=== PATIENT | female | born 1950 | race Caucasian/White ===

== ENCOUNTER → 2017-04-29 | Outpatient (CLI) | payer MEDICARE, OTHER ==
--- NOTE | 2017-04-30 10:00 | MAM ---
History: Well woman exam. Date of exam: 04/29/2017 Services provided: Bilateral full field digital screening mammography. CAD, the images were reviewed with R2 computer aided detection. FINDINGS: Glandular tissue is near completely fatty involuted. Comparison with 2012 exam. No dominant mass, architectural distortion or clustered microcalcification. IMPRESSION: Benign exam Recommendation: Routine annual mammography BIRAD CATEGORY: 2 BENIGN Electronically signed by: Amanda Alcala MD 04/30/2017 9:58 AM CDT Workstation: [id number]
== END | disposition home or self-care (01) ==
LOC: MAMMO 09:00
PROVIDERS: ATTEND Family Medicine
DX: Z12.31 Encounter for screening mammogram for malignant neoplasm of breast (principal)

== ENCOUNTER → 2018-04-30 | Outpatient (CLI) | payer MEDICARE, OTHER ==
--- NOTE | 2018-05-02 14:39 | MAM ---
EXAM DESCRIPTION: 3D Screening BILATERAL : Digital Mammography. CLINICAL HISTORY: 67 years Female SCREENING . No complaints. No family history breast cancer. Childbirth. Postmenopausal. HRT 5 or more years ago.. COMPARISON: 2-D digital screening bilateral study 11/29/2016.. Report from prior examination also reviewed. TECHNIQUE: Bilateral CC and MLO projection full-field images, 3-D tomosynthesis digital mammographic technique. CAD not utilized. FINDINGS: The breast parenchymal density pattern is: Almost entirely fatty. No skin thickening or nipple retraction. Bilateral solitary microcalcifications. No new focal, stellate mass or density, focal asymmetry , and no suspicious microcalcifications bilaterally. Stable mammograms compared to prior study, taking into account differences in mammographic technique. IMPRESSION: BI-RADS CATEGORY: 2 - BENIGN FINDINGS. FOLLOW UP: Routine digital bilateral screening, one year interval from April 2018. Written communication explaining the IMPRESSION and follow-up, will be mailed to the patient and referring health care provider. According to the [employer], yearly mammograms are recommended starting at age 40 and continuing as long as a woman is in good health. Any breast change noted on a breast self-exam should be reported promptly to the patient's healthcare provider. Breast MRI is recommended for women with an approximately 20-25% or greater lifetime risk of breast cancer, including women with a strong family history of breast or ovarian cancer and women who have been treated for Hodgkin's disease. A negative mammographic report should not delay tissue diagnosis in patients with significant clinical history or physical findings. Extremely dense breast tissue limits the sensitivity of digital mammography. Electronically signed by: Sami White MD 05/02/2018 2:38 PM CDT
== END ==
LOC: MAMMO 10:30
PROVIDERS: ATTEND Family Medicine
DX: Z12.31 Encounter for screening mammogram for malignant neoplasm of breast (principal)

== ENCOUNTER → 2019-02-10 | Outpatient (CLI) | payer MEDICARE, OTHER ==
--- NOTE | 2019-02-10 15:03 | CT ---
EXAM DESCRIPTION: Chest w/Contrast CLINICAL HISTORY: PULMONARY NODULE COMPARISON: None. TECHNIQUE: Postcontrast CT images of the chest are obtained using standard imaging protocol. This exam was performed according to our departmental dose-optimization program, which includes automated exposure control, adjustment of the mA and/or kV according to patient size and/or use of iterative reconstruction technique . FINDINGS: The heart shows mild coronary artery calcifications. No pleural or pericardial effusion. Mild calcified plaque of the thoracic aorta and great vessels is seen. No pathologically enlarged mediastinal, hilar, or axillary lymphadenopathy seen. Calcified lymph nodes in the left hilar region are seen. Calcified pulmonary nodule in the left mid chest measures 12 mm. Visualized portion of the upper abdomen shows heterogeneous decreased attenuation of the liver suggesting diffuse fatty infiltration. 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 Lungs are normally aerated. No acute infiltrate or consolidation is seen. No worrisome noncalcified pulmonary nodules are seen. Osseous structures show no aggressive bony lesions. IMPRESSION: Calcified pulmonary nodule in the lingula of the left upper lobe is seen with calcified lymph nodes in the left hilar region consistent with old granulomatous disease. Electronically signed by: Jamaal Cool MD 02/10/2019 3:00 PM CDT
--- NOTE | 2019-02-10 17:05 | US ---
EXAM DESCRIPTION: Soft Tissue,Head/Neck: ULTRASOUND. CLINICAL HISTORY: 68 years Female LOCALIZED SWELLING,MASS AND LUMP, NECK COMPARISON: None Available. TECHNIQUE: Transcutaneous scanning: Rico-scale and Doppler modes. Technologist describes palpable mass in the right submandibular region. FINDINGS: Right submandibular mass is heterogeneous and hypoechoic with increased vascularity. Measures approximately 2.1 x 1.1 x 1.9 cm. Increased vascularity. Multiple lobulations of the capsule. The mass measures approximately 2 x 1.8 x 1.0 cm. The normal gland is less hypoechoic and more homogeneous with smooth capsule. Overall size of the gland is 3.1 x 2.5 x 1.0 cm. Nonvascular linear hypoechoic structure may represent a duct. No large calcifications. No fluid collections within the gland are abutting the gland. The left submandibular gland appearance is identical to the normal segment of the right submandibular gland. Its dimensions are 2.5 x 0.8 cm. Not evaluated by Doppler. IMPRESSION: Abnormal tissue within the right submandibular gland which is more hypoechoic and heterogeneous than the normal tissue and also more vascular. Enlargement of the gland but no cysts or fluid collections. Differential includes sialoadenitis, benign mixed tumor, or carcinoma. Consider ENT consult and/or CT scan of the neck soft tissues with and without IV contrast. Electronically signed by: Sami White MD 02/10/2019 5:02 PM CDT
== END ==
LOC: CT 09:44
PROVIDERS: ATTEND Family Medicine
DX: R91.1 Solitary pulmonary nodule (principal); K11.9 Disease of salivary gland, unspecified

== ENCOUNTER → 2019-02-13 | Outpatient (CLI) | payer MEDICARE, OTHER ==
--- NOTE | 2019-02-14 12:51 | CT ---
EXAM DESCRIPTION: Soft Tissue Neck w/wo Contrast: Computed Tomography CLINICAL HISTORY: 68 years Female, LOCALIZED SWELLING, MASS AND LUMP NECK. Right submandibular gland mass. COMPARISON: Ultrasound of the neck soft tissues 02/10/2019. Ultrasound of the chest with contrast 02/10/2019. TECHNIQUE: Spiral, axial 2.5 x 2.5 mm scans through the neck soft tissues before and after infusion of IV contrast. Sagittal and coronal 2.0 reconstructions. No adverse reactions. Total Exam DLP: 480.04 mGy-cm. This exam was performed according to our departmental CT dose-optimization program which includes automated exposure control, adjustment of the mA and/or kV according to patient size and/or use of iterative reconstruction technique; to reduce radiation dose to as low as reasonably achievable (ALARA). FINDINGS: Increased enhancement is noted in the posterior and inferior aspect of the right submandibular gland this tissue measures approximately 2.1 cm AP, 1.7 cm craniocaudal, and 1.5 cm transverse. Smooth margins with no abnormal fatty enhancement or stranding in the surrounding adipose tissues. The remainder of the gland demonstrates the same amount of enhancement as the left submandibular gland which is slightly larger than the right submandibular gland. No abnormal enhancement in the left submandibular gland normal enhancement in density of the surrounding subcutaneous adipose tissues. No radiodense calcifications within either submandibular gland. No adenopathy within the submandibular space, none in the carotid spaces, paracervical spaces, or parapharyngeal spaces. No effacement or displacement of the airway and no asymmetric thickening or enhancement around the airway. Partially nonenhancing nodule in the posterior right lobe of the thyroid gland measuring 1.4 x 1.1 cm.. No calcifications within this nodule which has circumscribed margins and no adjacent fatty stranding. No adenopathy in the parathyroid soft tissues abutting the vascular structures. Included lungs are unremarkable. 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 Spondylosis at C6-7 and T1-2 with narrowing of the canals at both levels and foramina. IMPRESSION: 1. 2.1 cm mass, enhancing more than the remainder of the gland, in the posterior and inferior right submandibular gland circumscribed, not infiltrative, no surrounding fatty edema or stranding and no calcifications. Differential includes benign mixed tumor, inflammatory/autoimmune lesion, or carcinoma. No surrounding adenopathy. Consider ENT consult and tissue diagnosis. 2. 1.4 cm nonenhancing nodule in the posterior right thyroid gland. Consider follow-up thyroid ultrasound. See [facility] Best Practice guidelines below*. *Further evaluation by thyroid US recommended for: -Solitary ITN with high risk imaging features (locally invasive nodule or suspicious lymph nodes) -Solitary ITN of any size in pediatric pts. <= 18 years of age -Solitary ITN >= 1 cm in axial plane in pts. between 18 and 35 years of age -Solitary ITN >= 1.5 cm in axial plane in pts >= 35 years of age -Heterogeneous enlarged thyroid gland -ITN avid on FDG-PET or other nuclear medicine (MIBI and octreotide) scans. FNA biopsy is also recommended for PET avid nodules. No US or f/u recommended for ITNs without high risk features in pts. with limited life expectancy or significant co-morbidities, unless clinically warranted. These recommendations do not apply to pts. w/ increased risk for thyroid cancer or pts. with symptomatic thyroid disease. Recommendations for f/u of Incidental Thyroid Nodules (ITN) found on CT, MR, NM and Extrathyroidal US are based upon the ACR white paper and Rothman 3-tiered system for managing ITNs: J Am Marivel Radiol. 2015 Dec;12(2): 143-50 Electronically signed by: Sami White MD 02/14/2019 12:47 PM CDT
== END ==
LOC: CT 08:32
PROVIDERS: ATTEND Family Medicine
DX: R22.1 Localized swelling, mass and lump, neck (principal); E04.1 Nontoxic single thyroid nodule

== ENCOUNTER → 2019-05-04 | Outpatient (CLI) | payer MEDICARE, OTHER ==
--- NOTE | 2019-05-04 17:17 | MAM ---
EXAM DESCRIPTION: 3D Screening BILATERAL : Digital Mammography. CLINICAL HISTORY: 68 years Female 25+ years. Has taken normal in replacement. . No complaints. No personal or family history of breast cancer. Childbirth. Postmenopausal. Lifetime risk of developing breast cancer (Tyrer-Cuzick model)(%): 4.5. COMPARISON: Bilateral screening digital breast tomosynthesis 04/30/2018.. TECHNIQUE: Bilateral CC and MLO projection full-field images, digital tomosynthesis mammographic technique. Bilateral digital 2-D full-field MLO images. CAD not available for tomosynthesis or 2-D images. FINDINGS: The breast parenchymal density pattern is: Almost entirely fatty. No skin thickening or nipple retraction. No new focal, stellate mass or density, focal asymmetry , and no suspicious microcalcifications bilaterally. Stable mammograms compared to prior study. IMPRESSION: Negative findings. BI-RADS CATEGORY: 1 - NEGATIVE. FOLLOW UP: Routine digital bilateral screening, one year interval from April 2019. Written communication explaining the findings and follow-up, will be mailed to the patient and referring health care provider. According to the [employer], yearly mammograms are recommended starting at age 40 and continuing as long as a woman is in good health. Any breast change noted on a breast self-exam should be reported promptly to the patient's healthcare provider. Breast MRI is recommended for women with an approximately 20-25% or greater lifetime risk of breast cancer, including women with a strong family history of breast or ovarian cancer and women who have been treated for Hodgkin's disease. A negative mammographic report should not delay tissue diagnosis in patients with significant clinical history or physical findings. Extremely dense breast tissue limits the sensitivity of digital mammography. Electronically signed by: Sami White MD 05/04/2019 5:15 PM CDT
== END ==
LOC: MAMMO 11:15
PROVIDERS: ATTEND Family Medicine
DX: Z12.31 Encounter for screening mammogram for malignant neoplasm of breast (principal)

== ENCOUNTER → 2020-05-05 | Outpatient (CLI) | payer MEDICARE, OTHER ==
--- NOTE | 2020-05-09 14:51 | MAM ---
EXAM DESCRIPTION: 3D Screening BILATERAL . CLINICAL HISTORY: 69 years Female ANNUAL SCREENING . No complaints. No personal or family history of breast cancer. Menarche age 10. Childbirth age 20. Menopause age 38. HRT 5 or more years ago. Lifetime risk of developing breast cancer (Tyrer-Cuzick model)(%): 4.3. COMPARISON: Bilateral screening digital breast tomosynthesis May 2019 and April 2018. TECHNIQUE: Bilateral CC and MLO projection full-field images, digital tomosynthesis mammographic technique. Bilateral digital 2-D full-field MLO images. and CC images. CAD available for 2-D images. FINDINGS: The breast parenchymal density pattern is: Almost entirely fatty. No skin thickening or nipple retraction. No new focal, stellate mass or density, focal asymmetry , and no suspicious microcalcifications bilaterally. Stable mammograms compared to prior study. IMPRESSION: No suspicious or significant imaging findings. BI-RADS CATEGORY: 1 - NEGATIVE RECOMMENDATIONS: FOLLOW UP: Routine digital bilateral screening, one year interval from May 2020. Written communication explaining the findings and follow-up, will be mailed to the patient and referring health care provider. According to the [employer], yearly mammograms are recommended starting at age 40 and continuing as long as a woman is in good health. Any breast change noted on a breast self-exam should be reported promptly to the patient's healthcare provider. Breast MRI is recommended for women with an approximately 20-25% or greater lifetime risk of breast cancer, including women with a strong family history of breast or ovarian cancer and women who have been treated for Hodgkin's disease. A negative mammographic report should not delay tissue diagnosis in patients with significant clinical history or physical findings. Extremely dense breast tissue limits the sensitivity of digital mammography. Electronically signed by: Sami White MD 05/09/2020 2:50 PM CDT
== END ==
LOC: MAMMO 09:00
PROVIDERS: ATTEND Family Medicine
DX: Z12.31 Encounter for screening mammogram for malignant neoplasm of breast (principal)